=== PATIENT | female | born 1965 | race Caucasian/White ===

== ENCOUNTER 2019-08-28 15:10 | Emergency (ER) | payer MEDICAID ==
[~2019-08-28] VITALS: Ht 154.9 cm; Wt 112.0 kg
[2019-08-28 15:28] VITALS: Ht 154.9 cm; Wt 112.0 kg
[2019-08-28 16:05] LABS: BASOPHIL % 0.2 % (0-2); PLATELET COUNT 263 x10^3mcL (130-400); RED CELL DISTRIBUTION WIDTH 13.8 % (11.5-14.5)
[2019-08-28 16:18] LABS: CALCIUM 8.9 mg/dL (8.5-10.1); CARBON DIOXIDE 32.1 mmol/L (21-32); CHLORIDE SERUM 106 mmol/L (98-107); CREATININE SERUM 0.7 mg/dL (0.6-1.0); GFR1 > 60 mL/min; GLUCOSE SERUM 102 mg/dL (74-106); POTASSIUM SERUM 4.1 mmol/L (3.5-5.1); SODIUM SERUM 143 mmol/L (136-145)
[2019-08-28 16:45] LABS: ALBUMIN 3.5 g/dL (3.4-5.0); ALKALINE PHOSPHATASE 107 U/L (46-116); ALT/SGPT 57 U/L (14-59); AST/SGOT 26 U/L (15-37); TOTAL PROTEIN, SERUM 7.6 g/dL (6.4-8.2)
[2019-08-28 19:30] VITALS: BP 146/70
== END 2019-08-28 19:30 | disposition home or self-care (01) ==
LOC: ED 15:10
PROVIDERS: Emergency Medicine
DX: R22.43 Localized swelling, mass and lump, lower limb, bilateral (principal); R42 Dizziness and giddiness; R51 Headache; R06.02 Shortness of breath; Z90.711 Acquired absence of uterus with remaining cervical stump
CPT/HCPCS: 36415; 83880; 85378